=== PATIENT | female | born 1955 | race Caucasian/White ===

== ENCOUNTER 2018-05-04 12:23 | Outpatient (CLI) | payer OTHER ==
--- NOTE | 2018-05-04 14:16 | MRI ---
MRI LUMBAR SPINE WITHOUT CONTRAST: 05/04/2018 HISTORY: Closed compression fracture, L3 vertebral body. COMPARISON: Radiographs, lumbar spine, 02/12/2018. FINDINGS: The retroperitoneal structures demonstrate a normal MRI appearance. There are increased T1 and T2 weighted signal intensity foci seen in the T10 and T11 vertebral bodies , with a few additional scattered increased T1 and T2 weighted signal intensity foci in the lumbar ve rtebral bodies, related to hemangiomas, largest in the T11 vertebral body measuring 1.3 cm. There is a burst fracture of the L3 vertebral body, which was also present on a prior study in 2018. There is mildly increased signal intensity along the central aspect of the superior endplate, which may be related to an acute fracture of the superior endplate. Findings are likely related to a recen t compression fracture, superimposed on a burst fracture of the L3 vertebral body. There is slight r etropulsion of the posterior-superior endplate, resulting in slight mass effect at the anterior aspec t of the thecal sac, with only mild generalized narrowing of the central spinal canal. T12-L1: There is no disk bulge or disk herniation. The central spinal canal and neural foramina are patent. L1-L2: There is no disk bulge or disk herniation. The central spinal canal and neural foramina are patent. L2-L3: There is no significant disk bulge or disk herniation. The central spinal canal and neural f oramina are patent at this level; however, there is mild narrowing of the central spinal canal, prima rily related to mass effect at the anterior aspect of the thecal sac, due to retropulsion of fracture fragments of the posterior-superior endplate of the L3 vertebral body. The neural foramina are kaur nt. L3-L4: There is no disk bulge or disk herniation. The central spinal canal and neural foramina are patent. L4-L5: There is no significant disk bulge or disk herniation. The central spinal canal and neural f oramina are patent. L5-S1: There is no disk bulge or disk herniation. The central spinal canal and neural foramina are patent. IMPRESSION: Burst fracture, L3 vertebral body. 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 Retropulsion of fracture fragments at this level does result in mild narrowing of the central spinal canal. POS: BELEM
== END 2018-05-04 12:24 | disposition home or self-care (01) ==
LOC: BICMRI 12:23
PROVIDERS: ATTEND Family Medicine
DX: S32.03 Fracture of third lumbar vertebra (principal); M48.061 Spinal stenosis, lumbar region without neurogenic claudication
CPT/HCPCS: 72148

== ENCOUNTER 2019-04-10 14:15 | Observation (INO) | payer OTHER ==
[2019-04-10] MEDS ORDERED: Acetaminophen 500 MG TAB ONE (14:42)
[2019-04-10] MEDS ORDERED: Nitroglycerin 0.4 MG TAB (25 Tab Bottle) PO PRN (16:06)
[2019-04-10 16:13] LABS: Troponin I Less than 0.010 ng/mL (< 0.028)
[2019-04-10 19:31] LABS: Troponin I Less than 0.010 ng/mL (< 0.028)
[2019-04-10] MEDS ORDERED: Sodium Chloride 0.9% 1,000 ML IV SCH (19:45)
[2019-04-10 20:29] VITALS: BMI 26.4
[2019-04-10] MEDS: Metoprolol Tartrate 25 MG TAB PO SCH (21:21)
[2019-04-10] MEDS: PHENobarbital 32.4 MG TAB PO SCH (21:21)
[2019-04-10] MEDS: HYDROcodone/Acetaminophen 5/325 mg Tablet PO PRN (21:25)
[2019-04-11] MEDS: HYDROcodone/Acetaminophen 10/325 mg Tablet PO SCH ×4 (01:11→12:09)
[2019-04-11] MEDS: HYDROcodone/Acetaminophen 5/325 mg Tablet PO PRN (02:19)
[2019-04-11] MEDS: PHENobarbital 32.4 MG TAB PO SCH (07:46)
--- NOTE | 2019-04-11 07:54 | HP ---
CHIEF COMPLAINT: Chest pain. HISTORY OF PRESENT ILLNESS: This is a 63-year-old female with past medical history of seizures and CVA, who presented to the hospital with complaints of central chest tightness that started an hour prior to presentation. The patient stated that the pain was persistent and was not relieved until she received nitroglycerin in the emergency department. The pain did not radiate and was not associated with shortness of breath, cough, nausea, vomiting, palpitations, or dizziness. The patient denied any prior episodes. She never had a cardiac workup done and never had a stress test before. PAST MEDICAL HISTORY: Seizure disorder, CVA. PAST SURGICAL HISTORY: Cholecystectomy, hysterectomy, and hip surgery. FAMILY HISTORY: Unremarkable for the current presentation. SOCIAL HISTORY: The patient does not smoke, drink alcohol, or use illicit drugs. DIAGNOSTIC STUDIES: EKG showed normal sinus rhythm and initial troponin is unremarkable. IMPRESSION: 1. Chest pain, rule out acute coronary syndrome. a. The patient will be placed on telemetry and serial troponins will be obtained. If troponins are negative and her pain does not recur, then we will plan for a nuclear stress test in the morning. b. Heart score is 4. 2. Seizure disorder: a. Continue her home medication of phenobarbital. 3. History of cerebrovascular accident. a. Continue aspirin. Job ID: [id number]
[2019-04-11] MEDS ORDERED: FLU VACC QS2019-20(6MOS UP)/PF 60 MCG/0.5 ML SYRINGE IM ONE (09:00)
[2019-04-11] MEDS ORDERED: Aspirin 325 mg Enteric Coated Tablet PO SCH (09:00)
[2019-04-11] MEDS ORDERED: Enoxaparin Sodium 40 MG/0.4 ML SYRINGE SC SCH (09:00)
[2019-04-11] MEDS ORDERED: ADENOSINE 60 MG/20 ML VIAL ONE (11:14)
[2019-04-11 11:58] VITALS: BP 151/76; TEMP 97.7
[2019-04-11] MEDS: Metoprolol Tartrate 25 MG TAB PO SCH (12:04)
[2019-04-11] MEDS ORDERED: Aspirin 81 mg Enteric Coated Tablet ONE (12:07)
--- NOTE | 2019-04-11 12:09 | NM ---
EXAM: NM Cardiac Stress W EF WF PROVIDED CLINICAL HISTORY: Chest pain and shortness of breath. COMPARISON: None FINDINGS: There is no significant reversible defect seen between the stress and resting acquisitions. Gated taran ges demonstrate normal ventricular wall motion and wall thickening. Calculated left ventricular ejection fraction is 80%. IMPRESSION: 1. Normal myocardial perfusion study without evidence of a reversible defect seen to suggest ischemia . 2. Normal LVEF of 80%.
[2019-04-11] MEDS ORDERED: Zolpidem Tartrate 5 MG TAB PO SCH (21:00)
--- NOTE | 2019-04-12 03:14 | DIS ---
DATE OF ADMISSION: 04/10/2019 DATE OF DISCHARGE: 04/11/2019 HISTORY OF PRESENT ILLNESS AND HOSPITAL COURSE: This is a 63-year-old female with past medical history of seizure disorder and CVA, who presented to the hospital with complaints of central chest tightness that started an hour prior to presentation. She stated that the pain was persistent and it was not relieved until she received nitroglycerin in the emergency department. The pain did not radiate and was not associated with shortness of breath, cough, nausea, vomiting, palpitations, or dizziness. The patient was placed in observation. EKG did not show any evidence of ischemic process, serial troponins were trended and were unremarkable, nuclear pharmacological stress test was performed and did not reveal any reversible ischemia. DISCHARGE DIAGNOSES: 1. Chest pain. 2. Seizure disorder. 3. History of cerebrovascular accident. DISCHARGE MEDICATIONS: 1. Ambien 2.5 mg at bedtime. 2. Gabapentin 100 mg p.o. t.i.d. 3. Meloxicam 7.5 mg p.o. p.m. 4. Phenobarbital 64.8 mg orally twice daily. 5. Prednisone eye drops 1 drop each eye twice daily. 6. Tizanidine hydrochloride 4 mg orally t.i.d. DISCHARGE INSTRUCTIONS: Cardiac diet, exercise 3-4 times a week as tolerated, follow up with your PCP in 1 week. Job ID: [id number]
== END 2019-04-11 14:30 | disposition home or self-care (01) ==
LOC: ERS 14:15 → ERHOLD 15:28 → 2SW 20:04
PROVIDERS: ADMIT Internal Medicine; ATTEND Internal Medicine
DX: R07.89 Other chest pain (principal); G40.909 Epilepsy, unspecified, not intractable, without status epilepticus; Z79.1 Long term (current) use of non-steroidal anti-inflammatories (NSAID); Z79.82 Long term (current) use of aspirin; Z79.899 Other long term (current) drug therapy; Z86.73 Personal history of transient ischemic attack (TIA), and cerebral infarction without residual deficits; Z88.8 Allergy status to other drugs, medicaments and biological substances; Z91.09 Other allergy status, other than to drugs and biological substances
CPT/HCPCS: 36415; 78452; 93005; 93017; 96360; 96372; A9503; G0378; J0153; J1650

== ENCOUNTER 2020-04-22 09:35 | Outpatient (CLI) | payer OTHER ==
--- NOTE | 2020-04-22 10:26 | MRI ---
MRI of thelumbar spine: 04/22/2020 COMPARISON:05/04/2018 HISTORY:Lumbar radiculopathy, back pain with pain radiating into the right leg TECHNIQUE: Multiplanar multisequence MR imaging of thelumbar spine without contrast Findings:No focal area of osseous marrow edema. Decreased T1 and T2 signal noted at the L3 level consistent with interval placement of vertebral body cement. On the basis of 5 lumbar type vertebral bodies, the conus medullaris terminates at L1-2. T12-L1: Intervertebral disc height and signal intensity within normal limits with no significant cent ral canal or neural foraminal stenosis. L1-2: There is disc space narrowing with disc desiccation and minimal disc bulge. No significant cent ral canal or neural foraminal stenosis. L2-3: There is disc desiccation and mild left facet hypertrophy with no significant central canal or neural foraminal stenosis. A mild L3 burst fracture status post kyphoplasty demonstrates minimal osseous retropulsion along the superior endplate with no central canal stenosis. This fracture does not appear significantly changed aside from new cement when compared to the 05/04/2018 examination. L3-4: No significant central canal or neural foraminal stenosis. L4-5: No central canal or neural foraminal stenosis L5-S1: No central canal or neural foraminal stenosis. Multiple scattered hemangiomata are noted within the lower thoracic spine and throughout the lumbar s pine. Image retroperitoneal structures demonstrate no acute findings. IMPRESSION:Stable L3 burst fracture status post interval kyphoplasty. No new/acute fracture is seen. No significant central canal or neural foraminal stenosis.
== END 2020-04-22 09:36 | disposition home or self-care (01) ==
LOC: SCSMRI 09:35
PROVIDERS: ATTEND Nurse Practitioner Family
DX: M54.16 Radiculopathy, lumbar region (principal); S32.030G Wedge compression fracture of third lumbar vertebra, subsequent encounter for fracture with delayed healing
CPT/HCPCS: 72148

== ENCOUNTER 2022-09-02 09:02 | Outpatient (CLI) | payer OTHER | END 2022-09-02 09:03 | disposition home or self-care (01) | LOC: RAD 09:02 | PROVIDERS: ATTEND Nurse Practitioner Family | DX: M46.1 Sacroiliitis, not elsewhere classified (principal); M43.8X6 Other specified deforming dorsopathies, lumbar region; M16.12 Unilateral primary osteoarthritis, left hip | CPT/HCPCS: 72120; 72170 ==

== ENCOUNTER 2023-01-27 11:27 | Outpatient (CLI) | payer MEDICARE, MEDICAID | END 2023-01-27 11:28 | disposition home or self-care (01) | LOC: SCSMRI 11:27 | PROVIDERS: ATTEND Nurse Practitioner Family | DX: M54.6 Pain in thoracic spine (principal); M50.122 Cervical disc disorder at C5-C6 level with radiculopathy; M48.02 Spinal stenosis, cervical region | CPT/HCPCS: 72141; 72146 ==